=== PATIENT | male | born 1945 | race Caucasian/White ===

== ENCOUNTER → 2020-06-13 | Outpatient (CLI) | payer MEDICARE ==
--- NOTE | 2020-06-13 14:00 | XR ---
EXAMINATION TYPE: XR cervical spine limited DATE OF EXAM: 06/13/2020 COMPARISON: None HISTORY: Status post cervical fusion TECHNIQUE: Three-view cervical spine FINDINGS: There is an anterior fusion between C4 and C6. A spacer is through the C5 T1 level. Disc he ights appear preserved. Prevertebral space is normal. Posterior spinal lamellar line is intact. Facet degenerative changes are present greater on the left than the right. The odontoid appears intact. IMPRESSION: 1. Postsurgical fusion changes. 2. Facet degenerative changes bilaterally
== END | disposition home or self-care (01) ==
LOC: RADXRMAIN 13:25
DX: M47.812 Spondylosis without myelopathy or radiculopathy, cervical region (principal); Z98.1 Arthrodesis status
CPT/HCPCS: 72040

== ENCOUNTER → 2020-09-15 | Outpatient (CLI) | payer MEDICARE | END | disposition home or self-care (01) | LOC: LABPAT 08:40 | PROVIDERS: ATTEND Surgery | DX: Z20.822 Contact with and (suspected) exposure to COVID-19 (principal) | CPT/HCPCS: U0003; C9803; U0005 ==

== ENCOUNTER 2020-09-22 06:39 | Day surgery (SDC) | payer MEDICARE ==
[2020-09-20 11:08] VITALS: BMI 28.6
[~2020-09-22 06:39] MED LIST: LACTATED RINGERS 1,000 ML IV SCH
[2020-09-22 07:00] VITALS: TEMP 97.3
[2020-09-22 07:12] LABS: Glucose,Whole Blood 114 mg/dL (75-99)
[2020-09-22] MEDS ORDERED: PROPOFOL 10 MG/ML 20 ML VIAL IV ONE (07:32)
--- NOTE | 2020-09-22 07:35 | P.GSHP ---
History of Present Illness H&P Date: 09/22/20 75-year-old male presents today for screening colonoscopy. He has had previous colonoscopies. He states his last colonoscopy was normal. Denies any blood in the stool. Denies any personal or family history of colon cancer. - Review of Systems All systems: negative Past Medical History Past Medical History: Diabetes Mellitus, Hyperlipidemia, Hypertension, Osteoarthritis (OA) Additional Past Medical History / Comment(s): CHRONIC PAIN History of Any Multi-Drug Resistant Organisms: None Reported Past Surgical History: Back Surgery, Orthopedic Surgery Additional Past Surgical History / Comment(s): LEFT KNEE,spinal fusion Past Anesthesia/Blood Transfusion Reactions: No Reported Reaction Smoking Status: Never smoker - Past Family History Mother Family Medical History: Cancer Additional Family Medical History / Comment(s): lung CA Medications and Allergies Home Medications Medication Instructions Recorded Confirmed Type Acetaminophen Tab [Tylenol Tab] 500 mg PO Q6H PRN 09/20/20 09/22/20 History Canagliflozin [Invokana] 300 mg PO QAM 09/20/20 09/20/20 History Pravastatin Sodium [Pravachol] 40 mg PO HS 09/20/20 09/20/20 History Ramipril 10 mg PO BID 09/20/20 09/20/20 History Verapamil Sr [Isoptin Sr] 240 mg PO QAM 09/20/20 09/20/20 History metFORMIN HCL [Glucophage] 500 mg PO TID 09/20/20 09/20/20 History Allergies Allergy/AdvReac Type Severity Reaction Status Date / Time No Known Allergies Allergy Verified 09/22/20 06:58 Surgical - Exam Osteopathic Statement: *. No significant issues noted on an osteopathic structural exam other than those noted in the History and Physical/Consult. Vital Signs Temp Pulse Resp BP Pulse Ox 97.3 F L 89 17 158/75 96 09/22/20 06:59 09/22/20 06:59 09/22/20 06:59 09/22/20 06:59 09/22/20 06:59 - General well nourished, no distress - Respiratory normal respiratory effort - Abdomen Soft, nontender, nondistended, no rebound or guarding Results - Labs Abnormal Lab Results - Last 24 Hours (Table) 09/22/20 Range/Units 07:08 POC Glucose (mg/dL) 114 H (75-99) mg/dL Assessment and Plan Plan: 75-year-old male presents today for screening colonoscopy. Plan is for colonoscopy. Risks, benefits and alternatives to the procedure were presented to the patient. He did provide consent. Further recommendations after procedure is completed.
--- NOTE | 2020-09-22 07:53 | P.PCN ---
Date of Procedure: 09/22/20 Preoperative Diagnosis: Screening for colon cancer Postoperative Diagnosis: Screening for colon cancer Normal colon Procedure(s) Performed: Colonoscopy Anesthesia: MAC Surgeon: Johnnie Davis Pathology: none sent Condition: stable Disposition: same day Indications for Procedure: 75-year-old male presents today for screening colonoscopy. States he has had previous colonoscopy. Denies any blood in his stool. Denies any history of colon cancer. Risks, benefits and alternatives were provided to the patient. He did provide consent prior to attending the endoscopy suite. Operative Findings: Overall, normal colon Internal hemorrhoids Description of Procedure: The patient was brought to the endoscopy suite and placed in left lateral decubitus position and adequate sedation was achieved using conscious sedation. A digital rectal exam was performed and internal hemorrhoids were palpated. An endoscope was then placed in the rectum and advanced to the cecum as identified by landmarks including the appendiceal orifice and the ileocecal valve. The prep was good. The colonoscope was then slowly withdrawn, examining for any mucosal abnormalities. The cecum, ascending, transverse, descending and sigmoid colon were visualized adequately. There were no large neoplastic lesions noted throughout the colon. There were no polyps noted throughout the colon. There was no evidence of diverticulosis. Retroflexion was performed in the rectum and internal hemorrhoids were visible. Excess air was removed, the colonoscope was withdrawn and the procedure terminated. The patient was then transferred to the recovery unit in stable condition. Repeat colonoscopy should be performed based on symptoms due to the patient's age.
[2020-09-22 07:55] VITALS: RESP 16
[2020-09-22 08:07] VITALS: BP 101/64; PULSE 69
== END 2020-09-22 08:30 | disposition home or self-care (01) ==
LOC: ORWHC2ENDO 06:39
PROVIDERS: ATTEND Surgery
DX: Z12.11 Encounter for screening for malignant neoplasm of colon (principal); K64.8 Other hemorrhoids; E11.9 Type 2 diabetes mellitus without complications; E78.5 Hyperlipidemia, unspecified; I10 Essential (primary) hypertension; M19.90 Unspecified osteoarthritis, unspecified site; G89.29 Other chronic pain; Z98.890 Other specified postprocedural states; Z98.1 Arthrodesis status; Z79.84 Long term (current) use of oral hypoglycemic drugs; Z79.899 Other long term (current) drug therapy; Z80.1 Family history of malignant neoplasm of trachea, bronchus and lung
CPT/HCPCS: J2704; G0121

== ENCOUNTER → 2021-12-11 | Outpatient (CLI) | payer MEDICARE ==
--- NOTE | 2021-12-12 05:06 | XR ---
EXAMINATION TYPE: XR ribs bilateral DATE OF EXAM: 12/11/2021 COMPARISON: NONE HISTORY: 76-year-old male, pain. Fall, landing on the right-sided ribs. TECHNIQUE: 8 views FINDINGS: Moderate degenerative change at the bilateral AC joints incidentally noted. Some narrowing of the sub acromial space on the right may reflect underlying rotator cuff tear and should be correlated clinica lly. There is some cortical irregularity along the left anterior sixth and seventh ribs on the oblique vie ws. No discrete fracture lucency is seen. Possible sequela of old injury. Correlate for any point ten derness here. On the right, there are fractures of the right posterior and lateral seventh and eighth ribs. Segment al fractures. The posterior fracture components are displaced by half a shaft width. Additional nondisplaced fracture of the lateral right ninth rib. No underlying pneumothorax seen. IMPRESSION: 1. Segmental fractures of the right-sided seventh and eighth ribs. Additional nondisplaced fracture o f the lateral right ninth rib. 2. Possible underlying full-thickness rotator cuff tear on the right. 3. Moderate bilateral AC joint OA.
== END | disposition home or self-care (01) ==
LOC: RADXRMAIN 14:14
PROVIDERS: ATTEND Family Medicine
DX: S22.41XA Multiple fractures of ribs, right side, initial encounter for closed fracture (principal)
CPT/HCPCS: 71110

== ENCOUNTER 2024-06-18 13:03 | Emergency (ER) | payer MEDICARE ==
--- NOTE | 2024-06-18 13:21 | ED ---
General Adult HPI - General Source: patient, RN notes reviewed Mode of arrival: wheelchair Limitations: no limitations <Miroslava Cartwright - Last Filed: 06/18/24 13:20> <Cory Puente - Last Filed: 06/18/24 20:14> - General Chief complaint: Chest Pain Stated complaint: Chest pain Time Seen by Provider: 06/18/24 13:15 - History of Present Illness Initial comments: Quick Note: This is an 78-year-old male who presents to the emergency department for back pain and right arm pain. States that over the last week he has had a constant pain in his right arm and the right upper to mid back. Denies any injuries. Pain is not particularly worse with movement. Pain does not go into his actual chest. He is scheduled for a stress test and echocardiogram next month, but states that the pain got worse today and he wanted to be evaluated as opposed to waiting. Denies any history of heart attacks or stents. (Miroslava Cartwright) - Related Data Home Medications Medication Instructions Recorded Confirmed Acetaminophen Tab [Tylenol] 500 mg PO Q6H PRN 09/20/20 09/22/20 Canagliflozin [Invokana] 300 mg PO QAM 09/20/20 09/20/20 Pravastatin Sodium [Pravachol] 40 mg PO HS 09/20/20 09/20/20 Verapamil Sr [Isoptin Sr] 240 mg PO QAM 09/20/20 09/20/20 metFORMIN HCL [Glucophage] 500 mg PO TID 09/20/20 09/20/20 ramipriL [Ramipril] 10 mg PO BID 09/20/20 09/20/20 Previous Rx's Medication Instructions Recorded Ketorolac [Toradol] 10 mg PO Q8HR #15 tab 06/18/24 Allergies Allergy/AdvReac Type Severity Reaction Status Date / Time No Known Allergies Allergy Verified 06/18/24 13:08 Review of Systems ROS Other: All systems not noted in ROS Statement are negative. <Miroslava Cartwright - Last Filed: 06/18/24 13:20> ROS Other: All systems not noted in ROS Statement are negative. <Cory Puente - Last Filed: 06/18/24 20:14> ROS Statement: Those systems with pertinent positive or pertinent negative responses have been documented in the HPI. Past Medical History Past Medical History: Diabetes Mellitus, Hyperlipidemia, Hypertension Additional Past Medical History / Comment(s): CHRONIC PAIN History of Any Multi-Drug Resistant Organisms: None Reported Past Surgical History: Back Surgery, Orthopedic Surgery Additional Past Surgical History / Comment(s): LEFT KNEE Past Anesthesia/Blood Transfusion Reactions: No Reported Reaction Past Psychological History: No Psychological Hx Reported Smoking Status: Never smoker Past Alcohol Use History: None Reported Past Drug Use History: None Reported - Past Family History Mother Family Medical History: Cancer Additional Family Medical History / Comment(s): lung CA <Miroslava Cartwright - Last Filed: 06/18/24 13:20> General Exam Limitations: no limitations <Miroslava Cartwright - Last Filed: 06/18/24 13:20> - General Exam Comments Initial Comments: Visual Physical Exam Vital signs reviewed General: Well-appearing, nontoxic, no acute distress. Head: Normocephalic, atraumatic Eyes: PERRLA, EOMI ENT: Airway patent Chest: Nonlabored breathing Skin: No visual rash, normal skin tone Neuro: Alert and oriented 3 Musculoskeletal: No gross abnormalities (Miroslava Cartwright) Course Vital Signs 06/18/24 06/18/24 13:08 18:54 Temperature 97.4 F L Pulse Rate 86 90 Respiratory 20 18 Rate Blood Pressure 133/69 152/68 O2 Sat by Pulse 100 98 Oximetry Medical Decision Making <Miroslava Cartwright - Last Filed: 06/18/24 13:20> - Lab Data Result diagrams: 06/18/24 13:13 06/18/24 13:13 <Cory Puente - Last Filed: 06/18/24 20:14> - Medical Decision Making I performed the QuickNote portion of this chart. Signed Miroslava Cartwright PA-C. (Miroslava Cartwright) EKG is interpreted by myself but EKG shows a sinus rhythm at 79 bpm TN interval 190 QRS is 151 QT interval is 395 QTc is 429. Patient's EKG shows a left bundle branch block Was pt. sent in by a medical professional or institution (YADIRA Linder, REHEATER, urgent care, hospital, or custodial...) When possible be specific @ -No Did you speak to anyone other than the patient for history (EMS, parent, family, police, friend...)? What history was obtained from this source @ -No Did you review nursing and triage notes (agree or disagree)? Why? @ -I reviewed and agree with nursing and triage notes Were old charts reviewed (outside hosp., previous admission, EMS record, old EKG, old radiological studies, urgent care reports/EKG's, custodial records)? Report findings @ -No old charts were reviewed Differential Diagnosis? @ -Differential Back Pain: Strain, zoster, cauda equina syndrome, epidural abscess, vertebral osteomyelitis, discitis, fracture, subluxation, disc herniation, DJD, spinal stenosis, dissection, AAA, pancreatitis, peptic ulcer disease, pyelonephritis, kidney stone, this is not meant to be an all-inclusive list. EKG interpreted by me (3pts min.). @ -As above X-rays interpreted by me (1pt min.). @ -Chest x-ray shows no acute BuMel CT interpreted by me (1pt min.). @ -CT of the chest shows seventh rib fracture on the posterior right side right with the patient's pain is. U/S interpreted by me (1pt. min.). @ -None done What testing was considered but not performed or refused? (CT, X-rays, U/S, labs)? Why? @ -None What meds were considered but not given or refused? Why? @ -None Did you discuss the management of the patient with other professionals (professionals i.e. , PA, REHEATER, lab, RT, psych nurse, child welfare social worker, retail assistant manager, teacher, chief learning officer, caseworker intake)? Give summary @ -No Was smoking cessation discussed for >3mins.? @ -No Was critical care preformed (if so, how long)? @ -No Were there social determinants of health that impacted care today? How? (Homelessness, low income, unemployed, alcoholism, drug addiction, trans portation, low edu. Level, literacy, decrease access to med. care, intermediate, rehab)? @ -No Was there de-escalation of care discussed even if they declined (Discuss DNR or withdrawal of care, Hospice)? DNR status @ -No What co-morbidities impacted this encounter? (DM, HTN, Smoking, COPD, CAD, Cancer, CVA, ARF, Chemo, Hep., AIDS, mental health diagnosis, sleep apnea, morbid obesity)? @ -None Was patient admitted / discharged? Hospital course, mention meds given and route, prescriptions, significant lab abnormalities, going to OR and other pertinent info. @ -Patient was given Toradol and Dilaudid in the emergency department felt considerably better. Patient pain was right over the seventh rib posteriorly which was consistent with the CT scan. Patient stated he would be okay following up with his primary medical care doctor if he needed more medications. Patient will be given prescription for Toradol and told to stop Motrin 800 and given a take-home pack of Tylenol with codeine. Undiagnosed new problem with uncertain prognosis? @ -No Drug Therapy requiring intensive monitoring for toxicity (Heparin, Nitro, Insulin, Cardizem)? @ -No Were any procedures done? @ -No Diagnosis/symptom? @ -Seventh rib fracture right Acute, or Chronic, or Acute on Chronic? @ -Acute Uncomplicated (without systemic symptoms) or Complicated (systemic symptoms)? @ -Complicated Side effects of treatment? @ -No Exacerbation, Progression, or Severe Exacerbation? @ -No Poses a threat to life or bodily function? How? (Chest pain, [place], [place], pneumonia, PE, COPD, DKA, ARF, appy, cholecystitis, CVA, Diverticulitis, Homicidal, Suicidal, threat to staff... and all critical care pts) @ -No (Cory Puente) - Lab Data Lab Results 06/18/24 06/18/24 06/18/24 Range/Units 13:13 13:13 13:13 WBC 6.2 (3.8-10.6) k/uL RBC 3.84 L (4.30-5.90) m/uL Hgb 12.3 L (13.0-17.5) gm/dL Hct 38.5 L (39.0-53.0) % MCV 100.1 H (80.0-100.0) fL MCH 31.9 (25.0-35.0) pg MCHC 31.9 (31.0-37.0) g/dL RDW 12.6 (11.5-15.5) % Plt Count 241 (150-450) k/uL MPV 7.6 Neutrophils % 57 % Lymphocytes % 31 % Monocytes % 6 % Eosinophils % 3 % Basophils % 1 % Neutrophils # 3.5 (1.3-7.7) k/uL Lymphocytes # 1.9 (1.0-4.8) k/uL Monocytes # 0.3 (0-1.0) k/uL Eosinophils # 0.2 (0-0.7) k/uL Basophils # 0.0 (0-0.2) k/uL PT 10.5 (10.0-12.5) sec INR 0.9 (<1.2) APTT 25.1 (22.0-30.0) sec D-Dimer (<0.60) mg/L FEU Sodium 136 L (137-145) mmol/L Potassium 4.5 (3.5-5.1) mmol/L Chloride 99 (98-107) mmol/L Carbon Dioxide 23 (22-30) mmol/L Anion Gap 14 mmol/L BUN 29 H (9-20) mg/dL Creatinine 0.86 (0.66-1.25) mg/dL Est GFR (CKD-EPI)AfAm >90 (>60 ml/min/1.73 sqM) Est GFR (CKD-EPI)NonAf 82 (>60 ml/min/1.73 sqM) Glucose 199 H (74-99) mg/dL POC Glucose (mg/dL) (70-110) mg/dL POC Glu Lamp Assembler ID Calcium 9.6 (8.4-10.2) mg/dL Magnesium 1.7 (1.6-2.3) mg/dL Total Bilirubin 0.2 (0.2-1.3) mg/dL AST 31 (17-59) U/L ALT 33 (4-49) U/L Alkaline Phosphatase 55 (38-126) U/L Troponin I (0.000-0.034) ng/mL Total Protein 7.5 (6.3-8.2) g/dL Albumin 4.8 (3.5-5.0) g/dL 06/18/24 06/18/24 06/18/24 Range/Units 13:13 13:13 18:00 WBC (3.8-10.6) k/uL RBC (4.30-5.90) m/uL Hgb (13.0-17.5) gm/dL Hct (39.0-53.0) % MCV (80.0-100.0) fL MCH (25.0-35.0) pg MCHC (31.0-37.0) g/dL RDW (11.5-15.5) % Plt Count (150-450) k/uL MPV Neutrophils % % Lymphocytes % % Monocytes % % Eosinophils % % Basophils % % Neutrophils # (1.3-7.7) k/uL Lymphocytes # (1.0-4.8) k/uL Monocytes # (0-1.0) k/uL Eosinophils # (0-0.7) k/uL Basophils # (0-0.2) k/uL PT (10.0-12.5) sec INR (<1.2) APTT (22.0-30.0) sec D-Dimer 0.86 H (<0.60) mg/L FEU Sodium (137-145) mmol/L Potassium (3.5-5.1) mmol/L Chloride (98-107) mmol/L Carbon Dioxide (22-30) mmol/L Anion Gap mmol/L BUN (9-20) mg/dL Creatinine (0.66-1.25) mg/dL Est GFR (CKD-EPI)AfAm (>60 ml/min/1.73 sqM) Est GFR (CKD-EPI)NonAf (>60 ml/min/1.73 sqM) Glucose (74-99) mg/dL POC Glucose (mg/dL) 154 H (70-110) mg/dL POC Glu Lamp Assembler ID Lopez Hector Calcium (8.4-10.2) mg/dL Magnesium (1.6-2.3) mg/dL Total Bilirubin (0.2-1.3) mg/dL AST (17-59) U/L ALT (4-49) U/L Alkaline Phosphatase (38-126) U/L Troponin I <0.012 (0.000-0.034) ng/mL Total Protein (6.3-8.2) g/dL Albumin (3.5-5.0) g/dL 06/18/24 Range/Units 18:07 WBC (3.8-10.6) k/uL RBC (4.30-5.90) m/uL Hgb (13.0-17.5) gm/dL Hct (39.0-53.0) % MCV (80.0-100.0) fL MCH (25.0-35.0) pg MCHC (31.0-37.0) g/dL RDW (11.5-15.5) % Plt Count (150-450) k/uL MPV Neutrophils % % Lymphocytes % % Monocytes % % Eosinophils % % Basophils % % Neutrophils # (1.3-7.7) k/uL Lymphocytes # (1.0-4.8) k/uL Monocytes # (0-1.0) k/uL Eosinophils # (0-0.7) k/uL Basophils # (0-0.2) k/uL PT (10.0-12.5) sec INR (<1.2) APTT (22.0-30.0) sec D-Dimer (<0.60) mg/L FEU Sodium (137-145) mmol/L Potassium (3.5-5.1) mmol/L Chloride (98-107) mmol/L Carbon Dioxide (22-30) mmol/L Anion Gap mmol/L BUN (9-20) mg/dL Creatinine (0.66-1.25) mg/dL Est GFR (CKD-EPI)AfAm (>60 ml/min/1.73 sqM) Est GFR (CKD-EPI)NonAf (>60 ml/min/1.73 sqM) Glucose (74-99) mg/dL POC Glucose (mg/dL) (70-110) mg/dL POC Glu Lamp Assembler ID Calcium (8.4-10.2) mg/dL Magnesium (1.6-2.3) mg/dL Total Bilirubin (0.2-1.3) mg/dL AST (17-59) U/L ALT (4-49) U/L Alkaline Phosphatase (38-126) U/L Troponin I <0.012 (0.000-0.034) ng/mL Total Protein (6.3-8.2) g/dL Albumin (3.5-5.0) g/dL Disposition <Miroslava Cartwright - Last Filed: 06/18/24 13:20> Is patient prescribed a controlled substance at d/c from ED?: No Time of Disposition: 19:23 <Cory Puente - Last Filed: 06/18/24 20:14> Clinical Impression: Right rib fracture Disposition: HOME SELF-CARE Condition: Good Instructions (If sedation given, give patient instructions): Rib Fracture (ED) Prescriptions: Ketorolac [Toradol] 10 mg PO Q8HR #15 tab Referrals: Sina Ruth MD [Primary Care Provider] - 1-2 days
[2024-06-18 13:24] LABS: Basophils % (A) 1 %; Eosinophils # (A) 0.2 k/uL (0-0.7); Eosinophils % (A) 3 %; HCT 38.5 % (39.0-53.0); HGB 12.3 gm/dL (13.0-17.5); Lymphocytes # (A) 1.9 k/uL (1.0-4.8); Lymphocytes % (A) 31 %; MCH 31.9 pg (25.0-35.0); MCHC 31.9 g/dL (31.0-37.0); MCV 100.1 fL (80.0-100.0); Mean Platelet Volume 7.6; Monocytes # (A) 0.3 k/uL (0-1.0); Monocytes % (A) 6 %; Neutrophils # (A) 3.5 k/uL (1.3-7.7); Neutrophils % (A) 57 %; Platelet Count 241 k/uL (150-450); RBC 3.84 m/uL (4.30-5.90); RDW 12.6 % (11.5-15.5); WBC 6.2 k/uL (3.8-10.6)
--- NOTE | 2024-06-18 13:30 | XR ---
EXAMINATION TYPE: XR chest 2V DATE OF EXAM: 06/18/2024 1:26 PM COMPARISON: Left RIBS 12/11/2021 CLINICAL INDICATION: Male, 78 years old with history of Chest Pain, TECHNIQUE: XR chest 2V view(s) obtained. FINDINGS: The heart size is normal. The pulmonary vasculature is normal. The lungs are clear. IMPRESSION: 1. No acute pulmonary process. [facility], , 06/18/2024 1:28 PM
[2024-06-18 14:24] LABS: ALT 33 U/L (4-49); AST 31 U/L (17-59); African American GFR (CKD) >90 (>60 ml/min/1.73 sqM); Albumin 4.8 g/dL (3.5-5.0); Alkaline Phosphatase 55 U/L (38-126); Anion Gap 14 mmol/L; Blood Urea Nitrogen 29 mg/dL (9-20); Calcium 9.6 mg/dL (8.4-10.2); Carbon Dioxide 23 mmol/L (22-30); Chloride 99 mmol/L (98-107); Glucose 199 mg/dL (74-99); INR 0.9 (<1.2); Magnesium 1.7 mg/dL (1.6-2.3); Non-African American GFR(CKD) 82 (>60 ml/min/1.73 sqM); Partial Thromboplastin Time 25.1 sec (22.0-30.0); Potassium 4.5 mmol/L (3.5-5.1); Prothrombin Time 10.5 sec (10.0-12.5); Sodium 136 mmol/L (137-145); Total Bilirubin 0.2 mg/dL (0.2-1.3); Total Protein 7.5 g/dL (6.3-8.2)
--- NOTE | 2024-06-18 16:19 | CT ---
EXAMINATION TYPE: CT chest angio for PE DATE OF EXAM: 06/18/2024 3:57 PM COMPARISON: Chest radiograph from same day. CLINICAL INDICATION: Male, 78 years old with history of Back pain, elevated d-dimer; Postive dimer TECHNIQUE/CONTRAST: CTA scan of the thorax is performed with IV Contrast, patient injected with 70 mL of Isovue 370, MIP images are created and reviewed these are created on a separate workstation.. CT DLP: 395.7 mGycm, Automated exposure control for dose reduction was used. FINDINGS: Lungs/Pleura: No evidence of focal consolidation, pleural effusion or pneumothorax. Airway: Large airways are patent. Heart: The heart is mildly enlarged for size. Atherosclerosis of the arterial vasculature. Aortic alejandra ve calcifications are present. Vasculature: There is no evidence for a filling defect within the pulmonary vasculature to suggest ac [place] pulmonary embolism. The pulmonary artery is of normal size. Mediastinum: No gross evidence of adenopathy. Musculoskeletal: Right rib 7 fracture with incomplete osseous fusion. Multilevel degeneration changes of the spine with facet joint arthropathy. Remote injury to the left rib 6 with cortical step-off in tercostal condyle junction along the as well as rib 5. And on the right rib 5 and 4. Soft Tissues/lymph nodes: Unremarkable. Lower neck: No significant findings. Upper Abdomen: No significant findings. IMPRESSION: 1. No evidence of pulmonary embolism. 2. Right rib 7 fracture with incomplete osseous fusion. Correlate withe pain in this location. Addit ional cortical irregularities along the costochondral junction bilaterally possibly representing latrell te fractures of the ribs. 3. Moderate coronary artery atherosclerosis and aortic valve calcifications. [facility], , 06/18/2024 4:16 PM
[2024-06-18 18:01] LABS: Glucose,Whole Blood 154 mg/dL (70-110)
[2024-06-18 18:55] VITALS: RESP 18
[2024-06-18] MEDS: KETOROLAC 15 MG/ML 1 ML VIAL IVP STA (19:03)
[2024-06-18] MEDS: HYDROmorphone 0.5 MG/0.5 ML SYRINGE IVP STA (19:05)
[2024-06-18] MEDS: ACET/COD 300 MG/30 MG STARTER PACK 6 TAB BTL PO STA (20:02)
[2024-06-18 20:18] VITALS: BP 138/65; PULSE 82; TEMP 97.9
== END 2024-06-18 20:18 | disposition home or self-care (01) ==
LOC: EC 13:03
DX: S22.31XA Fracture of one rib, right side, initial encounter for closed fracture (principal); X58.XXXA Exposure to other specified factors, initial encounter
CPT/HCPCS: 36415; 93005; 85379; 80053; 83735; 84484; 85025; 85610; 85730; 71046; 71275; 99285; 96374; 96375; J1885; J1171; Q9967

== ENCOUNTER 2024-08-12 05:59 | Day surgery (SDC) | payer MEDICARE ==
[~2024-08-12 05:59] MED LIST changes: +ALPRAZolam 0.25 MG TAB PO PRN; +ALPRAZolam 0.5 MG TAB PO PRN; +ATORVASTATIN 80 MG TAB PO STA; -LACTATED RINGERS 1,000 ML IV SCH; +NITROGLYCERIN SL TABS 0.4 MG TAB SUBLINGUAL PRN
[2024-08-12] MEDS: SODIUM CHLORIDE 0.9% 1,000 ML in EMPTY BAG 1 BAG IV SCH (06:37)
[2024-08-12] MEDS: ASPIRIN 325 MG TAB PO STA (06:37)
[2024-08-12] MEDS: IV FLUID CONTINUATION 1,000 ML IV ONE (06:40)
[2024-08-12 06:54] LABS: Glucose,Whole Blood 145 mg/dL (70-110)
[2024-08-12 07:05] VITALS: RESP 16; TEMP 98.1
[2024-08-12] MEDS: IV FLUID CONTINUATION 900 ML IV ONE (07:29)
[2024-08-12] MEDS: fentaNYL (PF) 50 MCG/ML 2 ML AMP IVP ONE (07:32)
[2024-08-12] MEDS: MIDAZOLAM 2 MG/2 ML VIAL IVP ONE (07:32)
[2024-08-12] MEDS: BENZOCAINE SPRAY 1 EACH MM ONE (07:32)
[2024-08-12] MEDS: LIDOCAINE 1% INJ 10MG/ML (20 ML MDV) SQ ONE (07:47)
[2024-08-12] MEDS: VERAPAMIL SYRINGE (5 MG/10 ML) INTRAARTER ONE (07:51)
[2024-08-12] MEDS: HEPARIN SODIUM 1,000 UN/ML (10ML VL) IV ONE (07:55)
--- NOTE | 2024-08-12 08:02 | ECHOT ---
TRANSESOPHAGEAL ECHOCARDIOGRAM INDICATIONS: Aortic stenosis and cardiomyopathy. PROCEDURE NOTE: After obtaining informed consent, transesophageal echocardiogram was performed in left lateral position using an Omniplane probe. Local and IV sedation were obtained using Xylocaine spray, 25 mcg of fentanyl, and 1 mg of Versed. The patient tolerated the procedure well without any obvious immediate complications. FINDINGS: 1. Aortic valve: Aortic valve is a trileaflet valve, appears calcified with restricted leaflet mobility. The valve area seems to be around 1.8 sq cm consistent with mild aortic stenosis. There is [id number] aortic regurgitation noted. There is mild tricuspid regurgitation noted and mild mitral regurgitation noted. 2. Interatrial septum: There is no evidence of ypdl-xo-cqygc shunt by color-flow Doppler or wcprz-[id number] shunt by agitated saline contrast study. There is biatrial enlargement. 3. Left ventricle appears mildly dilated with diffuse global hypokinesis with severe LV dysfunction with an ejection fraction of around 35%. CONCLUSIONS: 1. Cardiomyopathy with severe LV dysfunction. 2. Mild aortic stenosis. 3. Qdbw-iy-lglarfsr aortic regurgitation. 4. Aneurysmal dilatation of the ascending aorta, measuring 4.3 cm. MMODL / IJN: [id number] /
[2024-08-12] MEDS: HEPARIN SODIUM,PORCINE (1 ML) 2,500 UNIT in SODIUM CHLORIDE 0.9% 250 ML IRRIGATION PRN (08:16)
[2024-08-12] MEDS: IOPAMIDOL-370 100ML BTL INJ ONE (08:16)
[2024-08-12] MEDS: HEPARIN SODIUM,PORCINE 10,000 UNIT in SODIUM CHLORIDE 0.9% 1,000 ML IRRIGATION PRN (08:16)
[2024-08-12] MEDS ORDERED: RX INFO: IV CONTRAST WAS GIVEN 1 EACH MISC MISCELLANE PRN (09:29)
[2024-08-12] MEDS ORDERED: SODIUM CHLORIDE 0.9% 1,000 ML IV SCH (09:30)
[2024-08-12 10:45] VITALS: BP 104/57; PULSE 58
--- NOTE | 2024-08-12 12:08 | CC ---
CARDIAC CATHETERIZATION REPORT INDICATION: Cardiomyopathy and aortic stenosis. PROCEDURE NOTE: After obtaining informed consent, left heart catheterization and coronary angiogram were performed via the right radial artery using standard Francoise catheters. The patient tolerated the procedure well without any obvious immediate complications. A TR band will be used for hemostasis. The patient received verapamil and heparin per protocol. Right radial artery access was obtained using Seldinger technique, 6-Telugu sheath was placed. Catheters and wires were floated into the ascending aorta. Right coronary artery was engaged using a 3.5 right Francoise catheter. The left coronary artery was engaged using a 4.5 left Francoise catheter. The patient tolerated the procedure well without any obvious immediate complications. FINDINGS: 1. HEMODYNAMICS: Left ventricular end-diastolic pressure is 20 mm. There is no significant gradient across the aortic valve. 2. LEFT VENTRICULOGRAM: Left ventriculogram is not performed. 3. ANGIOGRAPHIC DATA: a.Right coronary artery: Right coronary artery is a small nondominant vessel and is free of significant stenosis. b.Left main coronary artery: Left main coronary artery appears heavily calcified, but is free of significant disease, divides into a large dominant circumflex coronary artery and LAD. LAD shows a 30% to 40% plaque in the proximal portion. CONCLUSION: Mild to moderate nonobstructive coronary artery disease involving left anterior descending coronary artery. PLAN: The patient's management is going to be in the form of medical therapy. He does not have significant aortic stenosis and does not have significant obstructive CAD. The cardiomyopathy seems to be nonischemic in etiology. MMODL / IJN: [id number] /
== END 2024-08-12 11:29 | disposition home or self-care (01) ==
LOC: CATHCVL 05:59
PROVIDERS: ATTEND Internal Medicine Cardiovascular Disease
DX: I08.3 Combined rheumatic disorders of mitral, aortic and tricuspid valves (principal); I42.0 Dilated cardiomyopathy; I25.10 Atherosclerotic heart disease of native coronary artery without angina pectoris; I71.21 Aneurysm of the ascending aorta, without rupture; E11.9 Type 2 diabetes mellitus without complications; E78.2 Mixed hyperlipidemia; I10 Essential (primary) hypertension; F17.200 Nicotine dependence, unspecified, uncomplicated; Z79.899 Other long term (current) drug therapy; Z79.84 Long term (current) use of oral hypoglycemic drugs
CPT/HCPCS: 93312; 93320; 93325; 93458; J2250; J1644 ×3; J2003; J3010; Q9967

== ENCOUNTER → 2024-12-27 | Outpatient (CLI) | payer MEDICARE ==
[2024-12-27 10:35] LABS: ALT 30 U/L (10-49); AST 29 U/L (14-35); Cholesterol 189.00 mg/dL (0.00-200.00); HDL Cholesterol 65.10 mg/dL (40.00-60.00); LDL Cholesterol,Calculated 97.3 mg/dL (0.0-131.0); Triglycerides 133.00 mg/dL (0.00-149.00); VLDL Calculation 26.60 mg/dL (5.00-40.00)
== END | disposition home or self-care (01) ==
LOC: LABWHC1 08:13
PROVIDERS: ATTEND Internal Medicine Cardiovascular Disease
DX: E78.2 Mixed hyperlipidemia (principal)
CPT/HCPCS: 36415; 80061; 84450; 84460